=== PATIENT | female | born 1975 ===

== ENCOUNTER 2024-01-10 07:19 | Outpatient (AMB) | payer MEDICARE, SELFPAY ==
--- NOTE | 2024-01-10 07:28 | A.OFFVIS_ITS ---
Vital Signs 01/10/24 07:46 Height 5 ft 2 in Weight 182 lb 5.156 oz BMI 33.3 BP 112/70 Blood Pressure Location Lt brachial Position Sitting Pulse 65 Pulse Source Pulse Oximeter Pulse Oximetry (%) 98 Oxygen Delivery Method Room Air Intake Visit Reasons: polyarthralgia Intake Note: Patient presents for Polyarthralgia. Allergies acetaminophen [From PERCOCET] Allergy (Mild, Verified 01/10/24 07:33) ITCHING oxycodone [From PERCOCET] Allergy (Mild, Verified 01/10/24 07:33) ITCHING Medication List - Last Reconciled 01/10/24 by Gwendolyn Dugan MD albuterol 90 mcg/actuation mcg inhalation albuterol sulfate 90 mcg/actuation inhalation aripiprazole 5 mg PO DAILY budesonide mg inhalation bupropion HCl XL 300 mg PO DAILY clobetasol 0.05% 1 appl topical BID clonazepam mg PO diclofenac sodium 25 mg PO TID diclofenac sodium ER 100 mg PO DAILY dupilumab (Dupixent) 300 mg subcut Q2W elagolix (Orilissa) 150 mg PO DAILY epinephrine mL IM fluoxetine mg PO fluticasone furoate-vilanterol 200-25 mcg/dose (Breo Ellipta) 1 inh inhalation DAILY fluticasone furoate-vilanterol 200-25 mcg/dose (Breo Ellipta) 1 inh inhalation DAILY norethindrone (contraceptive) (Incassia) 0.35 mg PO DAILY pantoprazole 20 mg PO DAILY pregabalin (Lyrica) 150 mg PO BID tacrolimus 0.1% topical trazodone 50 mg PO BEDTIME zolmitriptan 5 mg PO Q2-4H PRN HPI Comments Details: Patient is a 48-year-old female with asthma ( moderate persistent, with recent emergency department visit to [facility] ), eczema on monoclonal antibody dupilumab, endometriosis, and depression who presents for evaluation of polyarthralgias. Fall at work 2009 complicated by injury to lumbar disc s/p multiple back surgeries including stimulator. Since then she has been having several issues with joint pain. Last saw a [employer] 1 year ago and was diagnosed with fibromyalgia and given a greater trochanteric bursa steroid injection. Patient states that she has polyarticular joint pain involving hands, wrists, shoulders, knees, ankles and feet. She also has back pain for which she is currently being managed by pain management. States that sometimes when she goes out in the sun she notices a rash on her arms but denies any facial rash or malar rash. Has some dry eyes/ dry mouth but nothing significant. No alopecia. No Raynaud's. Does report shortness of breath but has moderate persistent asthma and has a recent visit to the emergency department requiring nebulization. Denies oral/nasal ulcers, lymphadenopathy, foamy urine, lower extremity edema, muscle weakness Also denies history of seizure, CVA, psychosis, history of kidney problems, history of cytopenias, history of VTE Has 3 children. No history preeclampsia. No history of 2nd trimester miscarriages. No history of DVT or PE. Has a strong family history of fibromyalgia. No family history of autoimmune disease. [facility] Medical History (Updated 01/10/24 @ 08:34 by Gwendolyn Dugan MD) Greater trochanteric bursitis of left hip Polyarthralgia Fusion of lumbar spine delivery delivered Endometriotic cyst Urinary incontinence Pelvic pain Passage of loose stools Ovarian cyst Obesity, class 1 Asthma, moderate persistent Lumbar degenerative disc disease Lower back pain Hand pain Heartburn Fibromyalgia Fecal urgency Epigastric abdominal pain Depression Common migraine Chronic daily headache Back pain Asthma Anxiety Anemia Surgical History S/P placement of nerve stimulator H/O arthroscopy of left knee Hx of cholecystectomy H/O endoscopy H/O nasal septoplasty History of myomectomy H/O laparoscopy H/O midurethral sling procedure History of right salpingo-oophorectomy Family History (Updated 01/10/24 @ 07:45 by LEATHA Cooper) Mother Lung cancer Hypertension Maternal Grandmother Diabetes Social History (Updated 01/10/24 @ 07:46 by LEATHA Cooper) Household Members: None Housing: Apartment Alcohol intake: former Patient Tobacco Use Status: Never used Tobacco Review of Systems Const Details: Review of Systems Constitutional: Denies fever, chills, weight loss ENT: Denies vision changes, eye pain or eye redness, dental caries, dry mouth GI: Denies nausea, vomiting, diarrhea, abdominal pain, change in BM Pulm: Denies hemoptysis Cards: Denies chest pain, palpitations Skin: Denies Raynaud's, rash, nail changes, photosensitivity, [employer]MENT [employer]: Denies headaches, weakness, paresthesias, recurrent falls MSK: as per HPI All other systems reviewed and are unremarkable except noted above Physical Exam Vital Signs: Last Vital Signs Pulse 65 01/10/24 07:46 BP 112/70 01/10/24 07:46 Pulse Ox 98 01/10/24 07:46 Oxygen Delivery Method Room Air 01/10/24 07:46 BMI result Body Mass Index 33.3 Const Other: Physical Examination Patient well appearing and in no apparent painful distress Patient with knee brace and bilateral ankle brace. Constitutional Mucous membranes pink and moist patient alert and cooperative HEENT Conjunctiva and sclera clear. ?Pupils equal round and reactive to light. ?No lymphadenopathy. No oral ulcers noted Respiratory System Normal respiratory effort and able to speak in complete sentences. ?Clear to auscultation bilaterally. ?No crackles, rales, rhonchi, wheezes heard. Cardiac System Regular rate and rhythm. ?S1 and S2 heard no murmurs. ?Radial pulses intact bilaterally MSK No deformity, swelling, abnormalities noted to bilateral hands. ?No evidence of synovitis. ?Able to move all joints with full range of motion, without limitation. Hands:.??Able to make a fist. No synovitis noted to MCPs or PIPs. Did note Heberden's nodes throughout the hands. Patient had tenderness to palpation of all areas of the hand not specific to the joint. Wrists: Full range of motion of the wrists. However had tenderness to palpation to all areas of the wrist including the wrist joint but no obvious synovitis or swelling. Elbows: Full range of motion without pain. No tenderness, weakness, swelling, increased warmth or erythema. Shoulders: Decreased active range of motion limited by pain. However normal passive range of motion. Positive impingement tests. Hips: Full range of motion without pain. Hip bursa:.??Tenderness to palpation of the left greater trochanteric bursa Knees:.??No effusion noted, full range of motion. Ankles:.??Ankle in brace. Ankle joint proper without any tenderness to palpation but tendons at the lateral and medial malleolus tender to palpation. Feet:.??Normal pain-free range of motion without tenderness, swelling, increased warmth or erythema. Tender points:??Patient has widespread tenderness to digital palpation of the occiput, trapezius, bilateral elbows, bilateral outer knees. Skin Has several tattoos. No evidence of keloid skin or any rashes involving the tattoo. Office Procedures Joint Injection/Aspiration Joint Injection/Aspiration Details: Procedure was explained to the patient and consent was obtained. ? The area of interest was identified and confirmed with patient. ?This was subsequently cleaned with chlorhexidine x3. ? The area was then anesthetized using ethyl chloride spray. 40 mg Kenalog with 1 cc 1% lidocaine was injected without issue. ?Minimal to no bleeding. ?Patient tolerated procedure. Primary Site: other (Left greater trochanteric bursa) Prep: site was prepped using aseptic technique and ethochloride spray was applied Injected: 40 mg of, with 1 mL of and 1% plain lidocaine Approach Used: other (Lateral) Procedure: The patient tolerated the procedure well Coding 03105 - Glenohumeral/Tronchanteric Bursa/Intraarticular Procedure code (CPT) selection complete Results Reviewed Results Reviewed: No results seen in chart. Assessment & Plan Assessment & Plan (1) Fibromyalgia: Code(s): M79.7 - Fibromyalgia Category: Medical Plan: #Fibromyalgia Patient with significant tender points and pain out of keeping with proportion of examination. I agree with the diagnosis of fibromyalgia. She is currently taking pregabalin which she says helps. Recommend to continue this (2) Polyarthralgia: Code(s): M25.50 - Pain in unspecified joint Category: Medical Plan: #Polyarthralgias Patient with polyarthralgias. On history does not seem to be inflammatory in nature. No prolonged morning stiffness but she does have pain and sometimes inability to open and close the hands with edema. We will do due diligence and check inflammatory markers in a and RF/CCP. (3) Greater trochanteric bursitis of left hip: Comment: Steroid injection. Left greater trochanteric bursa 01/10/2024 Code(s): M70.62 - Trochanteric bursitis, left hip Category: Medical Plan: #Left greater trochanteric burisitis Left greater trochanteric bursitis status post injection. Plan I spent 30 minutes reviewing the record and labs, seeing the patient, discussing the treatment plan and documenting in the medical record ? For next visit: * Review labs and imaging. Orders: Orders Anti Extractable Nuclear Ag Today E55.9 - Vitamin D deficiency, unspecified, M25.50 - Pain in unspecified joint, M79.7 - Fibromyalgia C Reactive Protein Today E55.9 - Vitamin D deficiency, unspecified, M25.50 - Pain in unspecified joint, M79.7 - Fibromyalgia AMB Joint Injection/Aspiration Today E55.9 - Vitamin D deficiency, unspecified, M25.50 - Pain in unspecified joint, M70.62 - Trochanteric bursitis, left hip, M79.7 - Fibromyalgia XR hand wrist LT Today E55.9 - Vitamin D deficiency, unspecified, M25.50 - Pain in unspecified joint, M79.7 - Fibromyalgia XR shoulder LT min 2V Today E55.9 - Vitamin D deficiency, unspecified, M25.50 - Pain in unspecified joint, M79.7 - Fibromyalgia XR ankle LT min 3V Today E55.9 - Vitamin D deficiency, unspecified, M25.50 - Pain in unspecified joint, M79.7 - Fibromyalgia XR foot RT min 3V Today E55.9 - Vitamin D deficiency, unspecified, M25.50 - Pain in unspecified joint, M79.7 - Fibromyalgia XR foot LT min 3V Today E55.9 - Vitamin D deficiency, unspecified, M25.50 - Pain in unspecified joint, M79.7 - Fibromyalgia Cyclic Citrullinated Peptide Today E55.9 - Vitamin D deficiency, unspecified, M25.50 - Pain in unspecified joint, M79.7 - Fibromyalgia Rheumatoid Factor Today E55.9 - Vitamin D deficiency, unspecified, M25.50 - Pain in unspecified joint, M79.7 - Fibromyalgia INGA Reflex Titer and Pattern Today E55.9 - Vitamin D deficiency, unspecified, M25.50 - Pain in unspecified joint, M79.7 - Fibromyalgia Comprehensive Met. Panel Today E55.9 - Vitamin D deficiency, unspecified, M25.50 - Pain in unspecified joint, M79.7 - Fibromyalgia Complete Blood Count Auto Diff Today E55.9 - Vitamin D deficiency, unspecified, M25.50 - Pain in unspecified joint, M79.7 - Fibromyalgia Erythrocyte Sedimentation Rate Today E55.9 - Vitamin D deficiency, unspecified, M25.50 - Pain in unspecified joint, M79.7 - Fibromyalgia Thyroid Stimulating Hormone Today E55.9 - Vitamin D deficiency, unspecified, M25.50 - Pain in unspecified joint, M79.7 - Fibromyalgia Vitamin D 25-OH (D2 and D3) Today E55.9 - Vitamin D deficiency, unspecified, M25.50 - Pain in unspecified joint, M79.7 - Fibromyalgia XR hand wrist RT Today E55.9 - Vitamin D deficiency, unspecified, M25.50 - Pain in unspecified joint, M79.7 - Fibromyalgia XR shoulder RT min 2V Today E55.9 - Vitamin D deficiency, unspecified, M25.50 - Pain in unspecified joint, M79.7 - Fibromyalgia XR ankle RT min 3V Today E55.9 - Vitamin D deficiency, unspecified, M25.50 - Pain in unspecified joint, M79.7 - Fibromyalgia Coding Level of Care Code New Pt Level 3 (27970) Diagnoses Fibromyalgia M79.7 Polyarthralgia M25.50 Greater trochanteric bursitis of left hip M70.62 CPT Codes Coding - Joint 7: 69349 - Glenohumeral/Tronchanteric Bursa/Intraarticular ([id number])
[2024-01-10 07:46] VITALS: BP 112/70; PULSE 65; O2SAT 98; BMI 33.3
== END 2024-01-10 08:22 | disposition home or self-care (01) ==
PROVIDERS: PCP Family Medicine; Visit Provider Student in an Organized Health Care Education/Training Program
DX: M79.7 Fibromyalgia (principal); M25.50 Pain in unspecified joint; M70.62 Trochanteric bursitis, left hip
CPT/HCPCS: 20610; 99203

== ENCOUNTER → 2024-01-10 07:19 | Outpatient (BNVA) | payer MEDICARE, SELFPAY | PROVIDERS: PCP Family Medicine; Visit Provider Student in an Organized Health Care Education/Training Program | DX: M79.7 Fibromyalgia (principal); M25.50 Pain in unspecified joint; M70.62 Trochanteric bursitis, left hip; Z96.82 Presence of neurostimulator | CPT/HCPCS: 20610; 99202 ==